=== PATIENT | female | born 1995 | race Caucasian/White ===

== ENCOUNTER 2016-07-10 08:20 | Emergency (ER) | payer OTHER ==
[~2016-07-10] VITALS: Ht 157.5 cm; Wt 48.0 kg
[2016-07-10 08:21] VITALS: Ht 157.5 cm; Wt 48.0 kg
[2016-07-10] MEDS ORDERED: ONDANSETRON 4 MG INJ IV STA (08:31)
[2016-07-10] MEDS ORDERED: morphine 4 MG/ML VIAL IV STA (08:31)
[2016-07-10] MEDS ORDERED: KETOROLAC 30 MG INJ IV STA (08:31)
[2016-07-10] MEDS ORDERED: SOD CHLORIDE 0.9% 1,000 ML IV STA (08:31)
--- NOTE | 2016-07-10 08:47 | ERD ---
ER Documentation Chief Complaint Date/Time DATE: 07/10/16 Chief Complaint Right flank pain HPI The patient is a 21-year-old female with a history of Lupus who presents to to the Emergency Department with complaint of right flank pain. The patient reports that at 6:30 am she woke from sleep due to sudden, sharp, flank pain. The pain is localized to the right flank and radiates towards the right groin. It is constant, but waxing and waning in nature. She rates her current pain as 9/10, but has not yet taken any medication for pain relief. She reports mild nausea, but otherwise denies any fevers, sweats, chills, vomiting or diarrhea. Denies any black or bloody stools. Denies vaginal bleeding or new vaginal discharge. Denies dysuria, hematuria, urinary frequency or urgency. Denies abdominal distention. The patient's last menstrual period was February 2016, though she does not believe that she is currently . She reports a history of kidney stones in the past, and therefore believes that her current symptoms are secondary to kidney stones. Last episode of similar symptoms was April 2016. ROS All systems reviewed and are negative except as per history of present illness. Medications Home Meds Active Scripts Cephalexin* (Keflex*) 500 Mg Capsule, 500 MG PO QID for 7 Days, CAP Prov:ANTOINETTE HERNANDEZ PA-C 07/10/16 Tamsulosin Hcl* (Flomax*) 0.4 Mg Cap.er.24h, 0.4 MG PO QPM, #20 CAP Prov:ANTOINETTE HERNANDEZ PA-C 07/10/16 Ibuprofen* (Motrin*) 600 Mg Tab, 600 MG PO Q6, #30 TAB Prov:ANTOINETTE HERNANDEZ PA-C 07/10/16 Hydrocodone/Acetaminophen (Hayden 5-325 Tablet) 1 Each Tablet, 1 EACH PO Q6, #12 TAB Prov:ANTOINETTE HERNANDEZ PA-C 07/10/16 Allergies Allergies: Coded Allergies: No Known Allergy (Unverified , 07/10/16) PMhx/Soc History of Surgery: Yes (bilateral knee replacement) Hx Miscellaneous Medical Probl: Yes (lupus erythematosus, kidnesy stones) Hx Alcohol Use: Yes (socially) Hx Substance Use: No Hx Tobacco Use: No Smoking Status: Never smoker Physical Exam Vitals Vital Signs Date Time Temp Pulse Resp B/P Pulse Ox O2 Delivery O2 Flow Rate FiO2 07/10/16 08:21 98.1 63 18 123/63 99 Physical Exam GENERAL: Well-developed, well-nourished, female, in mild distress secondary to pain. HEENT: Head is normocephalic, atraumatic. No scleral pallor or icterus. Conjunctiva pink. Moist mucous membranes. Clear oropharynx. NECK: Supple. Full range of motion. RESPIRATORY: Lungs are clear to auscultation bilaterally. Equal breath sounds. Normal expiratory effort. CARDIOVASCULAR: Regular rate and rhythm. S1 and S2 normal. GASTROINTESTINAL: Abdomen is soft, non-tender, and non-distended. No guarding, no rebound tenderness. Normal bowel sounds. No gross peritonitis. Negative Rovsing's. Negative Porter's. No tenderness at McBurney's point. FLANK: No CVA tenderness. No masses or swelling. EXTREMITIES: No clubbing, cyanosis, or edema. Normal skin perfusion. Moving all extremities. NEUROLOGIC: The patient is alert, awake, and oriented x 3. No focal neurologic deficits. INTEGUMENT: Skin is intact. Warm and dry. No rashes, no vesicles, no petechiae present. PSYCHIATRIC: Cooperative. Result Diagram: 07/10/16 0910 07/10/16 0910 Results 24 hrs Laboratory Tests Test 07/10/16 08:45 07/10/16 09:10 Urine Color LT. YELLOW Urine Clarity HAZY Urine pH 7.0 Urine Specific Silva 1.015 Urine Ketones NEGATIVE Urine Nitrite NEGATIVE Urine Bilirubin NEGATIVE Urine Urobilinogen 0.2 E.U./dL Urine Leukocyte Esterase 1+ Urine Microscopic RBC >50/HPF Urine Microscopic WBC 2-5/HPF Urine Squamous Epithelial Cells MODERATE Urine Bacteria MODERATE Urine Hemoglobin 3+ Urine Glucose NEGATIVE% Urine Total Protein TRACE White Blood Count 6.210^3/ul Red Blood Count 4.2210^6/ul Hemoglobin 9.1g/dl Hematocrit 30.8% Mean Corpuscular Volume 73.0fl Mean Corpuscular Hemoglobin 21.6pg Mean Corpuscular Hemoglobin Concent 29.5g/dl Red Cell Distribution Width 17.2% Platelet Count 75272^3/UL Mean Platelet Volume 8.8fl Neutrophils % 74.3% Lymphocytes % 13.8% Monocytes % 6.2% Eosinophils % 5.2% Basophils % 0.2% Nucleated Red Blood Cells % 0.0/100WBC Neutrophils # 4.610^3/ul Lymphocytes # 0.910^3/ul Monocytes # 0.410^3/ul Eosinophils # 0.310^3/ul Basophils # 0.010^3/ul Nucleated Red Blood Cells # 0.010^3/ul Sodium Level 143mmol/L Potassium Level 4.0mmol/L Chloride Level 107mmol/L Carbon Dioxide Level 26mmol/L Anion Gap 14 Blood Urea Nitrogen 17mg/dl Creatinine 0.71mg/dl Glucose Level 95mg/dl Calcium Level 8.8mg/dl Total Bilirubin 0.1mg/dl Direct Bilirubin 0.00mg/dl Indirect Bilirubin 0.1mg/dl Aspartate Amino Transf (AST/SGOT) 26IU/L Alanine Aminotransferase (ALT/SGPT) 22IU/L Alkaline Phosphatase 92IU/L Total Protein 8.3g/dl Albumin 3.5g/dl Globulin 4.80g/dl Albumin/Globulin Ratio 0.72 Lipase 178U/L Serum HCG, Qualitative NEGATIVE Current Medications Medications (Trade) Dose Ordered Sig/Juan Route PRN Reason Start Time Stop Time Status Last Admin Dose Admin Sodium Chloride (NS) 1,000 ml @ 1,000 mls/hr Q1H STAT IV 07/10/16 08:31 07/10/16 09:30 DC 07/10/16 08:52 Morphine Sulfate (morphine) 4 mg ONCE STAT IV 07/10/16 08:31 07/10/16 08:32 DC 07/10/16 08:53 Ondansetron HCl (Zofran Inj) 4 mg ONCE STAT IV 07/10/16 08:31 07/10/16 08:32 DC 07/10/16 08:52 Ketorolac Tromethamine (Toradol) 30 mg ONCE STAT IV 07/10/16 08:31 07/10/16 08:32 DC 07/10/16 08:52 Hydromorphone HCl (Dilaudid) 0.5 mg ONCE STAT IV 07/10/16 09:33 07/10/16 09:34 DC 07/10/16 09:58 Procedures/MDM DIAGNOSTIC TESTS AND INTERPRETATION: PROCEDURE: CT abdomen and pelvis without contrast. CLINICAL INDICATION: Right flank pain TECHNIQUE: Continues 2.5 mm axial images were obtained from the domes of the diaphragms to the inferior pubic rami. No oral or intravenous contrast was administered. The calculated dose length product (DLP) = 353.96 mGy-cm. Exam CTDlvol = 6.4 mGy. One or more of the following dose reduction techniques were used: Automated exposure control, adjustment of the mA and or KV according to patient size, or use of iterative reconstruction technique. One or more of the following dose reduction techniques were used: Automated exposure control, adjustment of the mA and or KV according to patient size, or use of iterative reconstruction technique. COMPARISON: None. FINDINGS: Images through the lung bases demonstrate a small focus of pneumonitis/ atelectasis in the left lung base. Lung bases are otherwise clear. No pleural pericardial fluid is seen. Evaluation of the abdomen pelvis is limited given the absence of intravenous contrast, lack of intraperitoneal fat, extensive artifact from bilateral hip replacements in the pelvis. Liver, gallbladder, pancreas, and adrenals are within normal limits on this noncontrast study. There is borderline splenomegaly with spleen measuring 11 cm. Evaluation of the genitourinary system demonstrates multiple bilateral nonobstructing intrarenal calculi. The dominant stone in the left collecting system is in the upper pole and is nonobstructing measuring 10 mm. The Laureen. The right collecting system measures 3.5 mm in the upper pole and is nonobstructing. There is mild fullness of the right renal collecting system and right ureter which can only partially be seen. Due to bilateral total hip prosthesis, the distal portion of the right ureter cannot be evaluated, and the obstructing distal right ureteral stone cannot be identified, but is suspected. There is also questionable bifid there is a duplicated right renal collecting system. Recommend obtaining a ultrasound for further evaluation. The left collecting system and ureter are normal in caliber. Aorta is normal in caliber. There are no pathologically enlarged mesenteric lymph nodes. The stomach and small bowel loops are within normal limits. No small bowel dilatation or obstruction is seen. There is no free fluid, free air, abscess in the upper abdomen CT pelvis: Images of the pelvis are markedly limited due to artifact from bilateral total hip replacements. Bladder, uterus, adnexa are not visualized due to streak artifact. Visualized segments of the colon demonstrates no diverticulosis, or diverticulitis. Normal appendix is visualized. There are no obvious pathologically enlarged iliac chain lymph nodes. No destructive bony lesions are seen. Bilateral total hip replacements are noted IMPRESSION: 1. Limited study due to lack of intravenous contrast, minimal intraperitoneal fat, and extensive artifact from bilateral total hip replacements 2. Mild fullness of the right renal collecting system and right ureter is suspicious for distal right ureteral calculus; however due to the artifact from bilateral total hip replacements this cannot be evaluated. Recommend obtaining an ultrasound for further evaluation. 3. There is questionable bifid versus duplicated right renal collecting system 4. Several nonobstructing bilateral intrarenal calculi are seen ranging between 2-10 mm in size. 5. The left renal collecting system is normal in caliber. 6. Normal appendix. 7. Borderline splenomegaly .Navin Moya MD, Date Time Electronically viewed and signed by .Navin Moya MD, MD on 07/10/2016 09:47 PROCEDURE: Renal US. CLINICAL INDICATION: Right flank pain TECHNIQUE: Multiple sonographic images of the kidneys were obtained. The images were reviewed on a PACS workstation. COMPARISON: C2-10 the same day FINDINGS: Both kidneys are normal in echogenicity. There is normal renal cortical thickness without focal thinning or scarring. No solid renal masses are identified. There are multiple bilateral intrarenal calculi ranging between 5-9 mm. There is mild to moderate right hydronephrosis. The left collecting system is normal in caliber. The obstructing right renal calculus is not visualized. The right kidney measures 14.0 cm, and the left kidney measures 12.8 cm. Spot images of the pelvis demonstrating decompressed bladder. IMPRESSION: 1. Multiple bilateral intrarenal calculi ranging between 5-9 mm in size. 2. Mild to moderate right hydronephrosis. The obstructing calculus within the right ureter is not visualized by ultrasound. 3. No left-sided hydronephrosis. 4. Decompressed bladder .Navin Moya MD, MD Date Time Electronically viewed and signed by .Navin Moya MD, MD on 07/10/2016 10:48 MEDICAL DECISION MAKING: This is a 21-year-old female presenting to the Emergency Department with complaint of right flank pain. She had no lower abdominal tenderness to suggest appendicitis, no tenderness at McBurney's point. Abdomen was soft, non-tender, non-distended, no indication of acute/ surgical abdomen. No RUQ tenderness to suggest cholecystitis, choledocholithiasis. Differential diagnosis includes, but is not limited to, AAA , nephrolithiasis, cystitis, pyelonephritis, biliary colic, pancreatitis, appendicitis, aortic dissection, mesenteric ischemia, hernia, perforated viscous , diverticulitis, bowel obstruction, cancer, testicular torsion, fibroids, shingles, retroperitoneal abscess/ hematoma. CBC reveals no significant anemia. No significant electrolyte abnormalities noted to require medication replacement. No transaminitis. Creatinine and BUN within normal limits, no prerenal azotemia or acute kidney injury. CT abdomen and pelvis reveals mild fullness of the right renal collecting system and right ureter, suspicious for distal right ureteral calculus, likely the cause of the patient's symptoms. Due to the artifact from patient's bilateral total hip replacements, this was not able to be fully evaluated on CT and therefore US imaging was obtained. US imaging noted multiple bilateral intrarenal calculus, and mild-moderate right hydronephrosis. Urinalysis with 1+ urine leukocyte esterase, 2-5 WBCs, 3+ urine hemoglobin, > 50 RBCs, moderate bacteria. Findings suspicious for possible urinary tract infection. Urine culture sent. Patient with no CVA tenderness, no fevers, no vomiting, doubt ascending infection, pyelonephritis or infected stone. Urine hemoglobin consistent with possible kidney stone. After rest and administration of fluids and medications, the patient reports no new complaints , and decreased pain. At this time, the patient is in stable condition and therefore can be discharged home with prescriptions for Hayden, Keflex, Ibuprofen and Flomax, and given strict return precautions for signs of deteriorating or worsening condition. The patient is advised to follow up with their primary care provider and urologist within 1-2 days for reevaluation and further management, or return to the ER sooner for any worsening symptoms. I shared my medical decision making and plan with the patient at length and in great detail, and the patient verbally understands and agrees with the plan for further observation and care as an outpatient. At the time of discharge, all questions were answered. Departure Diagnosis: Primary Impression: Right flank pain Additional Impressions: Ureteral colic Kidney stone Urinary tract infection Urinary tract infection type: acute cystitis Hematuria presence: with hematuria Qualified Code: N30.01 - Acute cystitis with hematuria Condition: Stable Patient Instructions: Flank Pain, Uncertain Cause, Kidney Stone W/ Colic, Understanding Urinary Tract Infections (UTIs) Additional Instructions: Call your primary care doctor TOMORROW for an appointment during the next 1-2 days.See the doctor sooner or return here if your condition worsens before your appointment time. ANTOINETTE HERNANDEZ PA-C Jul 10, 2016 08:47
[2016-07-10 09:23] LABS: ADD SCAN DIFF NO
[2016-07-10 09:26] LABS: BASOPHILS % 0.2 % (0.0-2.0); EOSINOPHILS # 0.3 10^3/ul (0.0-0.5); EOSINOPHILS % 5.2 % (0.0-7.0); HEMATOCRIT 30.8 % (37.0-47.0); HEMOGLOBIN 9.1 g/dl (12.0-16.0); LYMPHOCYTES # 0.9 10^3/ul (0.8-2.9); LYMPHOCYTES % 13.8 % (15.0-51.0); MEAN CORPUSCULAR HEMOGLOBIN 21.6 pg (29.0-33.0); MEAN CORPUSCULAR HGB CONC 29.5 g/dl (32.0-37.0); MEAN PLATELET VOLUME 8.8 fl (7.4-10.4); MONOCYTE # 0.4 10^3/ul (0.3-0.9); MONOCYTES % 6.2 % (0.0-11.0); NEUTROPHIL # 4.6 10^3/ul (1.6-7.5); NEUTROPHILS % 74.3 % (39.0-77.0); PLATELET COUNT 334 10^3/UL (140-415); RED BLOOD COUNT 4.22 10^6/ul (4.20-5.40); RED CELL DISTRIBUTION WIDTH 17.2 % (11.5-14.5); WHITE BLOOD COUNT 6.2 10^3/ul (4.8-10.8)
[2016-07-10] MEDS ORDERED: HYDROmorphONE 1 MG/ML SYG IV STA (09:33)
[2016-07-10 09:41] LABS: ALBUMIN 3.5 g/dl (3.3-4.9)
[2016-07-10 09:44] LABS: ALBUMIN/GLOBULIN RATIO 0.72; BILIRUBIN,INDIRECT 0.1 mg/dl (0-1.1); BILIRUBIN,TOTAL 0.1 mg/dl (0.2-1.3); CALCIUM 8.8 mg/dl (8.4-10.2); CREATININE 0.71 mg/dl (0.44-1.00); TOTAL PROTEIN 8.3 g/dl (6.1-8.1)
--- NOTE | 2016-07-10 09:47 | RADRPT ---
PROCEDURE: CT abdomen and pelvis without contrast. CLINICAL INDICATION: Right flank pain TECHNIQUE: Continues 2.5 mm axial images were obtained from the domes of the diaphragms to the inf erior pubic rami. No oral or intravenous contrast was administered. The calculated dose length prod uct (DLP) = 353.96 mGy-cm. Exam CTDlvol = 6.4 mGy. One or more of the following dose reduction te chniques were used: Automated exposure control, adjustment of the mA and or KV according to patient size, or use of iterative reconstruction technique. One or more of the following dose reduction yuki hniques were used: Automated exposure control, adjustment of the mA and or KV according to patient s ize, or use of iterative reconstruction technique. COMPARISON: None. FINDINGS: Images through the lung bases demonstrate a small focus of pneumonitis/atelectasis in the left lung base. Lung bases are otherwise clear. No pleural pericardial fluid is seen. Evaluation of the abdomen pelvis is limited given the absence of intravenous contrast, lack of intra peritoneal fat, extensive artifact from bilateral hip replacements in the pelvis. Liver, gallbladder, pancreas, and adrenals are within normal limits on this noncontrast study. Ther e is borderline splenomegaly with spleen measuring 11 cm. Evaluation of the genitourinary system de monstrates multiple bilateral nonobstructing intrarenal calculi. The dominant stone in the left col lecting system is in the upper pole and is nonobstructing measuring 10 mm. The Laureen. The right co llecting system measures 3.5 mm in the upper pole and is nonobstructing. There is mild fullness of the right renal collecting system and right ureter which can only partially be seen. Due to bilater al total hip prosthesis, the distal portion of the right ureter cannot be evaluated, and the obstruc ting distal right ureteral stone cannot be identified, but is suspected. There is also questionable bifid there is a duplicated right renal collecting system. Recommend obtaining a ultrasound for fu rther evaluation. The left collecting system and ureter are normal in caliber. Aorta is normal in caliber. There are no pathologically enlarged mesenteric lymph nodes. The stomach and small bowel loops are within normal limits. No small bowel dilatation or obstruction is seen. There is no free fluid, free air, abscess in the upper abdomen CT pelvis: Images of the pelvis are markedly limited due to artifact from bilateral total hip repla cements. Bladder, uterus, adnexa are not visualized due to streak artifact. Visualized segments of the colon demonstrates no diverticulosis, or diverticulitis. Normal appendix is visualized. There are no obvious pathologically enlarged iliac chain lymph nodes. No destructive bony lesions are seen. Bilateral total hip replacements are noted IMPRESSION: 1. Limited study due to lack of intravenous contrast, minimal intraperitoneal fat, and extensive ar tifact from bilateral total hip replacements 2. Mild fullness of the right renal collecting system and right ureter is suspicious for distal rig ht ureteral calculus; however due to the artifact from bilateral total hip replacements this cannot be evaluated. Recommend obtaining an ultrasound for further evaluation. 3. There is questionable bifid versus duplicated right renal collecting system 4. Several nonobstructing bilateral intrarenal calculi are seen ranging between 2-10 mm in size. 5. The left renal collecting system is normal in caliber. 6. Normal appendix. 7. Borderline splenomegaly RPTAT: HH .Navin Moya MD, MD Date Time Electronically viewed and signed by .Navin Moya MD, on 07/10/2016 09:47 .W/
[2016-07-10 09:50] LABS: ADD UMIC YES; URINE BILIRUBIN (Dip) NEGATIVE (NEGATIVE); URINE BLOOD (Dip) 3+ (NEGATIVE); URINE COLOR LT. YELLOW (YELLOW); URINE GLUCOSE (Dip) NEGATIVE (NEGATIVE); URINE KETONES (Dip) NEGATIVE (NEGATIVE); URINE LEUKOCYTE ESTERASE (Dip) 1+ (NEGATIVE); URINE NITRITE (Dip) NEGATIVE (NEGATIVE); URINE TOTAL PROTEIN (Dip) TRACE (NEGATIVE); URINE UROBILINOGEN (Dip) 0.2 E.U./dL (0.1-1.0)
[2016-07-10 10:07] LABS: BACTERIA,URINE MODERATE; SQUAMOUS EPITHELIAL CELL,UR MODERATE; URINE RBCS >50 /HPF (0)
--- NOTE | 2016-07-10 10:48 | RADRPT ---
PROCEDURE: Renal US. CLINICAL INDICATION: Right flank pain TECHNIQUE: Multiple sonographic images of the kidneys were obtained. The images were reviewed on a PACS workstation. COMPARISON: C2-10 the same day FINDINGS: Both kidneys are normal in echogenicity. There is normal renal cortical thickness without focal thi nning or scarring. No solid renal masses are identified. There are multiple bilateral intrarenal ca lculi ranging between 5-9 mm. There is mild to moderate right hydronephrosis. The left collecting s ystem is normal in caliber. The obstructing right renal calculus is not visualized. The right kidney measures 14.0 cm, and the left kidney measures 12.8 cm. Spot images of the pelvis demonstrating decompressed bladder. IMPRESSION: 1. Multiple bilateral intrarenal calculi ranging between 5-9 mm in size. 2. Mild to moderate right hydronephrosis. The obstructing calculus within the right ureter is not visualized by ultrasound. 3. No left-sided hydronephrosis. 4. Decompressed bladder RPTAT: HH .Navin Moya MD, MD Date Time Electronically viewed and signed by .Navin Moya MD, on 07/10/2016 10:48 .W/
[2016-07-10] MEDS ORDERED: IBUP-1542 PO (11:10)
[2016-07-10] MEDS ORDERED: HYDR-906 PO (11:10)
[2016-07-10] MEDS ORDERED: TAMS-14 PO (11:11)
[2016-07-10] MEDS ORDERED: CEPH-443 PO (11:11)
[2016-07-10 12:27] VITALS: BP 130/88; PULSE 80; RESP 19; TEMP 98.6
== END 2016-07-10 12:28 | disposition home or self-care (01) ==
LOC: FTE 08:20
DX: R10.9 Unspecified abdominal pain (principal); N94.89 Other specified conditions associated with female genital organs and menstrual cycle; N20.0 Calculus of kidney; N30.01 Acute cystitis with hematuria; Z96.653 Presence of artificial knee joint, bilateral
CPT/HCPCS: 36415; 74176; 76775; 80053; 81001; 83690; 84703; 85025; 87086; 96374; 96375; J1170; J1885; J2270; J2405; J7030; Z7502; 81003